=== PATIENT | male | born 1990 | race Asian ===

== ENCOUNTER 2022-10-24 22:22 | Emergency (ER) | payer OTHER, SELFPAY ==
[2022-10-24 22:25] VITALS: BP 124/62; PULSE 71; RESP 16; TEMP 36.8; O2SAT 96; BMI 26.9
--- NOTE | 2022-10-24 22:44 | ED_ITS ---
HPI - Back Pain/Injury General Chief Complaint: Back Pain/Injury Stated Complaint: back pain, injured at gym Time Seen by Provider: 10/24/22 22:26 Source: patient History of Present Illness HPI Narrative: 31-year-old male nonsmoker with noncontributory medical history presents with a chief complaint of low back pain. The patient was performing a lift at the gym this evening and felt a pop in his right lower back and now has pain. His pain is worse when he moves and improves with rest. He denies any radiation of the pain. Denies any lower extremity numbness, tingling or weakness. He has no fever or chills and denies the use of blood thinners. He denies any direct trauma to his lower back. He denies loss of control of bowel or bladder. Related Data Previous Rx's Medication Instructions Recorded cyclobenzaprine 10 mg tablet 10 mg PO TID PRN muscle spasm #14 10/24/22 tabs hydrocodone 5 mg-acetaminophen 325 1 tab PO Q4-6H PRN pain #10 tabs 10/24/22 mg tablet ketorolac 10 mg tablet 10 mg PO Q6H PRN pain #14 tabs 10/24/22 Allergies Allergy/AdvReac Type Severity Reaction Status Date / Time nickel Allergy Intermediate Rash Verified 10/24/22 22:25 Review of Systems Review of Systems Narrative: GENERAL: Denies chills, fatigue, malaise, fever, sweats. HEENT: Denies sinus pain, ear pain, sore throat, difficulty swallowing, dizziness. RESPIRATORY: Denies dyspnea, cough, wheezing, hemoptysis, sputum. CARDIOVASCULAR: Denies chest pain, palpitations, orthopnea, edema, GASTROINTESTINAL: Denies nausea, vomiting, abdominal pain, diarrhea, constipation, melena. : Denies dysuria, frequency, incontinence, hematuria, urinary retention. MUSCULOSKELETAL: See HPI SKIN: Denies rash, skin lesions, or other NEUROLOGIC: See HPI PSYCHIATRIC: No concerning psychosocial issues. 12 point review of systems is negative except for those stated above Patient History Social History Smoking Status: Never smoker Smoking Status: Never smoker alcohol intake frequency: holidays/special occasions only Substance Use Type: does not use Exam Narrative Exam Narrative: GENERAL: [31] year old patient appears stated age. Well-developed patient, in mild distress. HEAD: Atraumatic. Normocephalic. EYES: Pupils equal round and reactive. Extraocular motions intact. No scleral icterus. No injection or drainage. ENT: Nose without bleeding, purulent drainage. Throat without erythema, tonsillar hypertrophy or exudate. Airway patent. NECK: Trachea midline. Non tender CARDIOVASCULAR: Regular rate and rhythm without murmurs, gallops, or rubs. RESPIRATORY: Clear to auscultation. Breath sounds equal bilaterally. No wheezes, rales, or rhonchi. GASTROINTESTINAL: Abdomen soft, non-tender, nondistended. EXTREMITIES: No edema or joint tenderness. 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 Patient exam notes decreased range of motion and muscle spasm, but no CVA tenderness, or vertebral point tenderness. There are no symptoms of cauda equina such as saddle anesthesia, and decreased reflexes, decreased sensation or strength. NEURO: AOx3. SKIN: No rash or erythema of visible areas Initial Vital Signs Initial Vital Signs: Vital Signs Temperature 98.3 F 10/24/22 22:25 Pulse Rate 71 10/24/22 22:25 Respiratory Rate 16 10/24/22 22:25 Blood Pressure 124/62 10/24/22 22:25 Pulse Oximetry 96 10/24/22 22:25 Oxygen Delivery Method Room Air 10/24/22 22:25 Course Orders Ordered: Discontinued Medications Hydrocodone Bitart/Acetaminophen (Hydrocodone/Acet 5/325 Prepack) 1 bottle MISC SEEINSTR ONE Stop: 10/24/22 22:38 Last Admin: 10/24/22 22:45 Dose: 1 bottle Documented By: WAYNE Cyclobenzaprine HCl (Cyclobenzaprine 10 Mg Prepack) 1 bottle MISC SEEINSTR ONE Stop: 10/24/22 22:38 Last Admin: 10/24/22 22:45 Dose: 1 bottle Documented By: WAYNE Ketorolac Tromethamine (Ketorolac 30 Mg/Ml Vial) 30 mg IM NOW ONE Stop: 10/24/22 22:38 Last Admin: 10/24/22 22:45 Dose: 30 mg Documented By: WAYNE Vital Signs Vital signs: Vital Signs - 8 hr 10/24/22 22:25 10/24/22 22:58 Temperature 98.3 F Pulse Rate 71 69 Respiratory Rate 16 18 Blood Pressure 124/62 116/63 Pulse Oximetry 96 98 Oxygen Delivery Method Room Air Room Air MDM - Back Pain/Injury MDM Narrative Medical decision making narrative: [31] year old patient presents with right low back pain Multiple etiologies of back pain considered including; Epidural abscess, cauda equina, mass occupying lesion, and other considered No prior charts noted Primary Historian: patient Patient's symptoms improved over duration of stay with above-stated therapies. Patient has reassuring history and physical exam, no radicular signs, no signs of cauda equina, no fever or use of blood thinners Findings and discharge diagnosis discussed with patient/family followed by verbalization of understanding Return precautions discussed with patient/family whom verbalize understanding of diagnosis and plan Discharge Plan Departure Patient Disposition: Home Clinical Impression: Low back pain Instructions: DI for Back Spasm Activity Restrictions/Additional Instructions: *You have been diagnosed with [low back pain with spasm. As we discussed your history and physical exam are reassuring and there is no evidence of a neurosurgical emergency, spinal cord involvement or other type of injury that would require immediate intervention] *What to do: *Please continue to take your regular medications as directed. [x ] New medication prescriptions sent to your pharmacy: [ [facility] in [place]] [ ] New medication written as a paper prescription [ ] No new medications given *Please follow up with your primary care provider in 2-3 days, call for an appointment. Let them know you were seen in the Emergency Department and that we ask that you be seen in follow up. We will electronically transmit a record of today's note if your PCP is in our system *If you do not have a primary care provider please contact the [facility] Resource line at [phone]. They will ask some questions about your medical history and help get you set up with a doctor in the community. *Return to Emergency Department if you should have any new, worsening or concerning symptoms, such as [fever greater than 101 F, shaking chills, worsening pain, persistent vomiting or other bothersome symptoms] You have been prescribed a short course of narcotic medications. These are potentially dangerous and addictive medications that should be used carefully. While on these medications you cannot drive or operate heavy machinery. Additionally, you cannot sign legal documents or perform any duties such as this. Many people get constipated on narcotic medications so it would be advisable to discuss stool softeners with the pharmacist when you rock picker your prescription. Please understand that we cannot provide further refills of narcotics or controlled substances through the ED and your pain management will need to be through your Primary Care Provider Prescriptions: New cyclobenzaprine 10 mg tablet 10 mg PO TID PRN (Reason: muscle spasm) Qty: 14 0RF hydrocodone-acetaminophen 5-325 mg tablet 1 tab PO Q4-6H PRN (Reason: pain) Qty: 10 0RF ketorolac 10 mg tablet 10 mg PO Q6H PRN (Reason: pain) Qty: 14 0RF Referrals: ProviderAdela [Primary Care Provider] - Stand Alone Forms: Patient Portal/API, Work Release Note
[2022-10-24] MEDS: KETOROLAC 30 MG/ML VIAL IM (22:45)
[2022-10-24] MEDS: HYDROCODONE/ACET 5/325 PREPACK 1 BOTTLE MISC (22:45)
[2022-10-24] MEDS: CYCLOBENZAPRINE 10 MG PREPACK 1 BOTTLE MISC (22:45)
[2022-10-24 22:58] VITALS: BP 116/63; PULSE 69; RESP 18; O2SAT 98
== END 2022-10-24 22:58 | disposition home or self-care (01) ==
LOC: ED 23:05
PROVIDERS: Emergency Provider Emergency Medicine
DX: M54.50 Low back pain, unspecified (principal)
CPT/HCPCS: 96372; 99283; J1885

== ENCOUNTER 2024-04-07 09:54 | Inpatient (IN) | payer OTHER, SELFPAY ==
[2024-04-03 09:42] VITALS: BMI 27.9
[2024-04-07] VITALS (18 sets, daily range): BP systolic 107–134; BP diastolic 43–84; PULSE 60–94; RESP 12–22; TEMP 36.1–37; O2SAT 94–100; BMI 28.3
--- NOTE | 2024-04-07 12:12 | PM.PREOP ---
Pre-operative Note Interval Note History & Physical reviewed/Exam performed by Physician: Yes Changes to H&P: No
[2024-04-07] MEDS: CEFAZOLIN 2 GM/100 ML PREMIX 100 ML IV ×2 (12:40→20:34)
--- NOTE | 2024-04-07 12:55 | SUR.OPER ---
Prone on spine table, head in foam head support, padded chest and pelvic supports, gel pad at knees, lower legs supported by pillows; nipples, genitalia and toes free of pressure, arms secured on foam padded arm boards at <90 degrees abduction. Tape over blanket at thigh secured to table.
--- NOTE | 2024-04-07 14:41 | DI.RAD.S_ITS ---
PROCEDURE: XR LUMBAR SPINE 2-3V INDICATIONS: L5-S1 TLIF TECHNIQUE: Low resolution intraoperative fluoroscopic spot films were obtained COMPARISON: None. FINDINGS: Intraoperative fluoroscopic spot films show L5-S1 TLIF in progress IMPRESSION: Fluoroscopic guidance Approved by: [place] Mike M.D. on 04/07/2024 at 17:40
--- NOTE | 2024-04-07 14:49 | P.OP_ITS ---
Operative Date/Time/Diagnoses Date of procedure: 04/07/24 Time of procedure: 12:00 Pre-op diagnosis: 1. L5 bilateral pars defect 1. L5-S1 anterolisthesis Post-op diagnosis: same Procedure & Clinicians Procedure: 1. L5-S1 Postero-lateral and posterior interbody fusion 2. L5-S1 interbody cage placement. 3. L5-S1 decompressive laminectomy with bilateral facetecomies 4. L5-S1 Posterior non-segmental instrumentation 5. [place] of bone marrow from iliac crest 6. Utilization of microsurgical technique and operating microscope Same procedure as scheduled: Yes Indications: Patient has been having chronic back pain and worsening lumbar radiculopathy. Patient failed multiple conservative management with worsening pain weakness and numbness in her lower extremity. Patient has been having difficulty performing activity of daily living. After discussing risks benefits of treatment options, patient elected proceed with surgery. Surgeon: Carlitos Zuñiga Family Service Worker: Radha Park Click Yes if Unassisted: No Anesthesia Type: General Operative Notes Closure Type: primary Specimen(s): none sent Prosthetic devices, grafts, tissues, transplants, or devices: Globus revolve screws, Rise cage Estimated Blood Loss (mL): 50 Blood products transfused: none Procedure in detail: Patient was seen in the preoperative area. Risks and benefits of the surgery was discussed with the patient. Informed consent was obtained from the patient and placed in the chart. Surgical site was marked. Patient was taken to the operative room. General anesthesia was administered. Prophylactic antibiotic was given to the patient less than 30 min before the incision was made. Patient was placed into a prone position on the Sung table. Patient's back was then prepped and draped in the sterile fashion. Time-out was performed at this time. Using AP and lateral C-arm imaging the interval between L5-S1 was identified and marked on patient's back. A 2 inch incision 2 in from midline was made on the left side first. The fascia was incised in line with skin incision. Globus MARS retractors was placed inside the incision and docked onto the L5 lamina. Using microsurgical technique and operating microscope, a L5 laminectomy and L5-S1 facetectomy was performed using a Kerrison rongeur. Patient was found have lateral recess and neural foramen stenosis on the left which was fully decompressed after the laminectomy facetectomy. The laminectomy and facetectomy was performed in order to decompress patient's cauda equina as well as the nerve roots exiting at the L5-S1 level. More than 75% of the facets were removed during the process of decompression rendering L5-S1 level grossly unstable and required a fusion procedure at the same time. The disc space at L5-S1 was identified. And a total diskectomy was performed at L5-S1 level. The endplates were decorticated using a rasp and shaver. The total diskectomy and decortication was performed at L5-S1 level in order to to accomplish a L5-S1 fusion. The local bone from the laminectomy and facetectomy was saved for local bone grafting. After the total diskectomy and decortication was completed, Viacel bone graft material was combined with local bone that was harvested earlier. At this time, a separate skin is incision was made over the iliac crest on the right. A Jamshidi needle was inserted into the iliac crest through a separate skin incision. 5 cc of bone marrow aspiration was obtained through the separate skin incision using a Jamshidi needle from the iliac crest. The bone marrow aspiration was combined with local bone and the Viacel bone grafting material. The bone grafting material was placed into the L5-S1 interbody space along with a expandable cage. The cage was expanded to its maximum height using the torque limiting screwdriver. At this time a mirror image incision was made on the right side. The fascia was incised in line with the skin incision. Globus MARS retractor was inserted and docked onto the L5-S1 posterolateral gutter. Using the power drill, posterior- lateral decortication was performed at L5-S1 level until bleeding cortical bone was identified. The remaining bone grafting material was placed into the L5-S1 posterior lateral gutter he order to accomplish posterolateral fusion at the L5- S1 level. Using the double C-arm technique, pedicle screws were placed into the L5-S1 pedicles bilaterally. This was done by placing the Jamshidi needle into the pedicles, then placing the guidewires over the Jamshidi needle, and finally placing the cannulated screws over the guidewires bilaterally. After the pedicle screws were placed, 2 titanium rods was locked into the heads of the pedicle screws using locking caps and torque limiting screwdriver. After all the hardware was placed, and confirmed with AP and lateral C-arm imaging, the wound was then irrigated with sterile normal saline and packed with Ray-Jose De Jesus gauze for 3 min to accomplish hemostasis. After the gauze was removed the deep fascia was closed with #1 Vicryl suture. The subcutaneous layer was closed with 2-0 Vicryl. The skin was closed with skin faustino. Patient tolerated the procedure well. There were no complications. The Operation could not have been safely performed without compromising the technical result or length of the procedure, without the assistance of a skilled executive marketing assistant. The executive marketing assistant was medically necessary for proper positioning, retraction and manipulation of instruments, proper exposure, surgical preparation, and manipulation of tissue. Neuro monitoring was utilized throughout the entire case. The signals were stable throughout entire procedure. Complications: none Post-operative Condition: stable Disposition: PACU Plan for aftercare: Admit to inpatient hospital
[2024-04-07] MEDS: BUPIVACAINE 0.25% (PF) 60 ML, EPINEPHrine 0.15 MG INJ (14:50)
[2024-04-07] MEDS: BUPIVACAINE LIPOSOME 266 MG/20 ML VIAL INJ (14:50)
[2024-04-07] MEDS: HYDROMORPHONE 1 MG INJ IV ×2 (15:24→15:30)
[2024-04-07] MEDS: ONDANSETRON 4 MG/2 ML INJ IV (15:27)
[2024-04-07] MEDS: hydrOXYzine 50 MG/ML INJ 25 MG IM (15:45)
[2024-04-07] MEDS: fentaNYL 100 MCG/2 ML INJ IV ×2 (15:49→15:55)
[2024-04-07] MEDS: OXYCODONE/ACETAMINOPHEN 5/325 TABLET 1 TAB PO (15:59)
--- NOTE | 2024-04-07 16:24 | SUR.PHASEI ---
Pt transferred to room 212 by Patricia RODRIGUEZ with 2 white belongings bags.
[2024-04-07] MEDS: LACTATED RINGERS 1,000 ML 125 ML IV ×2 (16:48→21:45)
[2024-04-07] MEDS: ACETAMINOPHEN 325 MG TABLET 650 MG PO (19:02)
[2024-04-07] MEDS: OXYCODONE IR 5 MG TABLET PO ×2 (19:02→22:29)
[2024-04-07] MEDS: SENNOSIDES 8.6 MG TABLET 17.2 MG PO (20:34)
[2024-04-07] MEDS: DOCUSATE 100 MG CAPSULE PO (20:34)
[2024-04-08] MEDS: OXYCODONE IR 5 MG TABLET PO (02:19)
[2024-04-08] MEDS: OXYCODONE IR 10 MG TABLET PO ×6 (03:26→20:45)
[2024-04-08] MEDS: ACETAMINOPHEN 325 MG TABLET 650 MG PO ×3 (05:24→20:45)
[2024-04-08] MEDS: CEFAZOLIN 2 GM/100 ML PREMIX 100 ML IV (05:25)
--- NOTE | 2024-04-08 07:42 | P.DS_ITS ---
History of Present Illness History of Present Illness Date Patient Seen: 04/08/24 Time Patient Seen: 07:42 Chief complaint: Back pain Narrative: Back pain is [id number] denies fever chills. Able to urinate on his own. He does have assistance at home. Discharge Providers Provider Date of admission: 04/07/24 09:54 Discharge Date: 04/08/24 Primary care physician: Adela GORE Provider Consults: 04/07/24 16:24 Consult to Occupational Therapy Evaluate & Treat Comment: Physician Instructions: Evaluate and treat Consult to Physical Therapy Evaluate & Treat Comment: Physician Instructions: Evaluate and Treat Discharge provider: Pop Mckeon PA-C Summary Hospital Course Discharge Diagnosis: 1. L5 bilateral pars defect 1. L5-S1 anterolisthesis Hospital Course: 1. L5-S1 Postero-lateral and posterior interbody fusion 2. L5-S1 interbody cage placement. 3. L5-S1 decompressive laminectomy with bilateral facetecomies 4. L5-S1 Posterior non-segmental instrumentation 5. [place] of bone marrow from iliac crest 6. Utilization of microsurgical technique and operating microscope Same procedure as scheduled: Yes Indications: Patient has been having chronic back pain and worsening lumbar radiculopathy. Patient failed multiple conservative management with worsening pain weakness and numbness in her lower extremity. Patient has been having difficulty performing activity of daily living. After discussing risks benefits of treatment options, patient elected proceed with surgery. Surgeon: Carlitos Zuñiga Habitat Management Coordinator: Radha Park Click Yes if Unassisted: No Anesthesia Type: General Operative Notes Closure Type: primary Specimen(s): none sent Prosthetic devices, grafts, tissues, transplants, or devices: Globus revolve screws, Rise cage Estimated Blood Loss (mL): 50 Blood products transfused: none Patient admitted to the hospital for the above-mentioned procedure. Patient consented to the same. Patient underwent L5-S1 fusion April 07, 2024. Patient back in his room recovering well as in stable condition. Patient will mobilize with physical therapy. Limit bending, twisting, lifting. Multimodal pain management. Discharge home today after physical therapy if safe for home environment. Exam Vital Signs (past 8 hours): Oxygen Delivery Method Room Air Oxygen Flow Rate 0 Narrative Exam Narrative: 33-year-old male resting comfortably in bed in no apparent distress. Neurovascular status is intact bilateral lower extremities. Const General: cooperative and comfortable PFSH Surgical History Hx of LASIK Social History household members: spouse Smoking Status: Never smoker alcohol intake: current Discharge Assessment & Plan Assessment and Plan Assessment: Patient progressing as expected Plan of Treatment: Multimodal pain management Limit bending, twisting, lifting Discharge home today after physical therapy if safe for home environment Discharge Plan Discharge orders & Medications Discharge Orders: Discharge (Order); Ordered 04/08/24 Ordered By: Pop Mckeon Prescriptions: New polyethylene glycol 3350 17 gram Powder In Packet 17 gm PO DAILY PRN (Reason: Constipation) Qty: 10 0RF oxycodone 5 mg Tablet 5 mg PO Q3H PRN (Reason: Pain, Moderate (4-6)) Qty: 30 0RF Continued acetaminophen [Tylenol Extra Strength] 500 mg Tablet 1,000 mg PO Q8H Discontinued naproxen [Naprosyn] 500 mg Tablet 500 mg PO BID Follow up/Referrals: Carlitos Zuñiga MD [Physician] - 04/22/24 9:50 am ([employer] in [place]) Provider,Adela GORE [Primary Care Provider] - Diet/Activity/Treatments Diet: Diet as Tolerated Activity: No deep bending or twisting at the waist. No lifting more than 10 pounds. Skin/Wound/Dressing Care Report to your healthcare provider any signs of infection, such as:: chills, fever, night sweats, unusual drainage and unusual redness Dressing: May shower. Keep dressing as dry as possible. If dressing becomes wet or dirty, may remove and replace with clean, dry gauze. No bathing or otherwise soaking incisions. Do not apply any creams, lotions, or ointments to incisions. Visit Report/Discharge Packet Instructions: DI for Constipation, How to Prevent Falls, DI for Prescription Opioid Use, DI for Transforaminal Lumbar Interbody Fusion Stand Alone Forms: Patient Portal/API, Stroke Signs & Symptoms, Surgery Discharge Discharge Data Primary Care Provider: ProviderAdela Quality VTE Deep Vein Thrombosis/Pulmonary Embolism Present on Admission: No
[2024-04-08] MEDS: DOCUSATE 100 MG CAPSULE PO ×2 (08:18→20:46)
--- NOTE | 2024-04-08 09:36 | OT.IP.EVAL ---
Current Diagnoses Spondylolisthesis, lumbar region (04/07/24) Spinal stenosis, lumbar region without neurogenic claudication (04/07/24) Surgery Performed Operation Date: 04/07/24 11:45 Actual Procedures p L5-S1 TLIF - Carlitos Zuñiga MD Surgical History (Last Reviewed 04/08/24 @ 07:44 by Pop Mckeon PA-C) [facility] Occupational Therapy Inpatient Evaluation/Re-Eval M1 PT/OT-IP Prior Functional Status Start: 04/08/24 10:37 Freq: NEEDED Status: Active Protocol: Document 04/08/24 10:38 [facility] (Rec: 04/08/24 10:49 [facility] [id number]) Medical Review Prior Functional Status Communication Independent Mobility and Gait Independent but had pain. Activities of Daily Living and IADL's Independent but had pain. Social History Household Members spouse Living Arrangements House Number of Floors (Floors) Two Floors Number of Stairs To Enter/Railing? 2 stair to enter without railing. Main floor bedroom. Home Environment Standard Height Toilet,Tub/ Shower Home Equipment Front Wheel Walker,Hand Held Shower Additional Social History Comment Pt is to be able to assist him. M2 OT-IP Current Condition Start: 04/08/24 10:37 Freq: Status: Active Protocol: Document 04/08/24 10:38 [facility] (Rec: 04/08/24 10:49 [facility] [id number]) Occupational Therapy Current Condition Current Condition Evaluation Date 04/08/24 Treatment Diagnosis S/P L5-S1 TLIF Diagnosis Onset Date 04/07/24 Post Operative Precautions Lumbar Precautions Log Roll,No Twisting,Limit Bending,Lifting Restriction of 10 lbs,Gait Belt above Incisional Area M3 OT- IP Subjective and Pain Start: 04/08/24 10:37 Freq: Status: Active Protocol: Document 04/08/24 10:38 [facility] (Rec: 04/08/24 10:49 [facility] [id number]) OT- Subjective Occupational Therapy Visit Type Type Initial Evaluation Visit Start Time 09:00 Visit Stop Time 09:36 Occupational Therapy Visit Comments Patient Comments Pt agreed to get up. Patient/Caregiver Goals TO go home. OT Pain Assessment Pain When Pain Assessed At Rest Pain Present Pain Present Pain Reported Location Lower Back Intensity 5 Scale Used Numeric (0 - 10) M4 OT- IP ADL's Start: 04/08/24 10:37 Freq: Status: Active Protocol: Document 04/08/24 10:38 [facility] (Rec: 04/08/24 10:49 [facility] [id number]) OT GLC-Hvea-Bkevfwy General Evaluation Self-Feeding Ability Independent OT ADL-Grooming Comments OT Grooming Comments Not performed. OT ADL-Oral Care Comments Oral Care Comments Suggested to hinge at his hips or spit into a cup to best follow his back precautions. OT ADL-Dressing General Eval Lower Body Dressing Ability Maximum Assistance Areas Needing Assistance Socks Comments OT Dressing Comments Able to practice use of LB dressing equipment, pt states to just wear slip on shoes. OT ADL-Toileting Comments OT Toileting Comments Pt needing heavy use of grab bar and MODA to stand. Pt will benefit from BSC. OT ADL-Bathing Comments OT Bathing Comments Pt will benefit from a tub bench versus shower chair. M5 OT- IP IADL's Start: 04/08/24 10:37 Freq: Status: Active Protocol: Document 04/08/24 10:38 [facility] (Rec: 04/08/24 10:49 [facility] [id number]) OT-Instrumental Activities of Daily Living Home Safety Awareness Awareness of Need for Assistance at Home Good Awareness Home Safety Comments Pt a little groggy at this time. Pt has a very supportive to be able to assist with all his needs. Meal Preparation Meal Preparation Caregiver Provides Assist Road Cutter Road Cutter Caregiver Provides Assist M6 OT- IP Functional Cognition Start: 04/08/24 10:37 Freq: Status: Active Protocol: Document 04/08/24 10:38 [facility] (Rec: 04/08/24 10:49 [facility] [id number]) Cognitive Factors Limiting Selfcare Function Cognitive Ability Level of Alertness Alert Patient Orientation Name,Age,Birthday,Month,Date, Year,Day of Week,Place, Situation Attention Span Ability Capable of Focused Attention, Capable of Sustained Attention Ability to Follow Commands Able to Follow One Step Commands Safety Awareness Decreased Recall of Precautions,Decreased Ability to Apply Precautions Cognitive Comments Cognitive Assessment Comments Pt needing reminders to incorporate his back precautions, especially for log rolling needs. OT- Vision and Hearing OT- Hearing Assessment OT- Hearing Assessment WFL OT- Vision Assessment Visual Acuity WFL Visual Attentiveness WFL Occular Pursuits WFL M7 OT- IP Mobility and Balance Start: 04/08/24 10:37 Freq: Status: Active Protocol: Document 04/08/24 10:38 [facility] (Rec: 04/08/24 10:49 [facility] [id number]) OT- Bed Mobility Assessment Rolling Level of Assistance Minimal Assistance Supine to Sit Supine to Sit Assist Moderate Assistance Sit to Supine Sit to Supine Assist Moderate Assistance OT-Transfer Assessment Sit to and From Stand Sit to and from Stand Minimal Assistance,Moderate Assistance Transfers Transfer Ability Minimal Assistance Technique Transfer Destination Bed,Chair,Toilet Transfer Technique Stand Step Pivot Devices Transfer Assistive Devices Gait Belt,Front Wheeled Walker Comments Mobility Comments Pt needing MODA to stand from lower surfaces. Pt tend to grab the FWW to come to stand and at this time will benefit from higher surfaces with armrests to stand. Pt's able to assist pt with the FWW and to come to stand from the bed. Pt is very heavy handed on the FWW while walking with the FWW. OT- Balance Assessment Sitting Balance and Reactions Static Sitting Balance Ability Good Dynamic Sitting Balance Ability Fair Standing Balance and Reactions Static Standing Balance Ability Fair Dynamic Standing Balance Ability Fair M8 OT- IP Objective Assessments Start: 04/08/24 10:37 Freq: Status: Active Protocol: Document 04/08/24 10:38 [facility] (Rec: 04/08/24 10:49 [facility] [id number]) OT Gross Range of Motion Upper Extremity Range of Motion ROM Impairments WFL for needs OT Strength Comments Strength Comments WFL for needs. M9 OT- IP Assessment and Plan Start: 04/08/24 10:37 Freq: Status: Active Protocol: Document 04/08/24 10:38 [facility] (Rec: 04/08/24 10:49 [facility] [id number]) OT Summary Assessment and Plan Potential Rehabilitation Potential Good Analytic Complexity at Evaluation Low Summary OT Impairments Pain,Balance,Functional Mobility,Grooming,Dressing, Toileting,Bathing,Toilet Transfers,Shower Transfers, Activity Tolerance Progress Towards Goals Slow Progress due to Pain Assessment Summary Pt low complexity and main barriers are pain and decreased activity tolerance. Pt at this time needing MODA to stand from lower surfaces. Pt to go home when medically stable and to assist. Goals Self-Feeding Goal Independent Grooming Goal Independent Dressing Goal Minimal Assistance Toileting Goal Standby Assistance Bathing Goal Minimal Assistance Toilet Transfer Goal Independent Shower Transfer Goal Standby Assistance Days to Meet Goals 10 Frequency of Treatment Other frequency 5x/week Treatment Plan OT Treatment Plan ADL Training,Functional Mobility,Patient/Family Education,Discharge Planning Discharge Recommendations OT Discharge Recommendations Home with 18/12 Assist Available Home Equipment Needs tub bench versus shower chair, LB dressing equipment Transportation Needs at Discharge Private Vehicle
--- NOTE | 2024-04-08 09:40 | PT.IIE ---
Current Diagnoses Spondylolisthesis, lumbar region (04/07/24) Spinal stenosis, lumbar region without neurogenic claudication (04/07/24) Surgery Performed Operation Date: 04/07/24 11:45 Actual Procedures p L5-S1 TLIF - Carlitos Zuñiga MD Surgical History (Last Reviewed 04/08/24 @ 07:44 by Pop Mckeon PA-C) [facility] Physical Therapy Inpatient Evaluation/Re-Eval M1 PT/OT-IP Prior Functional Status Start: 04/08/24 13:07 Freq: NEEDED Status: Active Protocol: Document 04/08/24 09:40 [facility] (Rec: 04/08/24 13:25 [facility] [id number]) Medical Review Prior Functional Status Medical History Reviewed Yes Communication able to make needs known Mobility and Gait pt stated that he was independent with all mobilities and ambulation without AD Activities of Daily Living and IADL's per OT note: Independent but had pain. Social History Household Members spouse,family,children Living Arrangements House Number of Floors (Floors) Two Floors Number of Stairs To Enter/Railing? pt stays on main level of the house 1 step to enter the house Home Environment Standard Height Toilet,Tub/ Shower Home Equipment Front Wheel Walker,Hand Held Shower Employment Status Prize [employer] Employed Additional Social History Comment pt lives with his spouse, children and [id number] pt works for logistics in the [employer] M2 PT-IP Current Condition Start: 04/08/24 13:07 Freq: NEEDED Status: Active Protocol: Document 04/08/24 09:40 [facility] (Rec: 04/08/24 13:25 AB [id number]) Physical Therapy Current Condition Current Condition Evaluation Date 04/08/24 Treatment Diagnosis s/p L5-S1 TLIF ; difficulty in walking Onset Date 04/07/24 M3 PT-IP Subjective Start: 04/08/24 13:07 Freq: NEEDED Status: Active Protocol: Document 04/08/24 09:40 [facility] (Rec: 04/08/24 13:25 AB [id number]) Subjective Physical Therapy Visit Type Type Initial Evaluation Visit Start Time 09:40 Visit Stop Time 10:20 Number of AUTO ELECTRICIAN Visits 0 Physical Therapy Visit Comments Patient Comments agreed to do PT Therapy Pain Assessment Pain When Pain Assessed At Rest Pain Present Pain Present Pain Reported Location Lower Back Intensity 7 Scale Used Numeric (0 - 10) Pain Behaviors Facial Grimacing,Guarding, Wincing Pain Management Techniques Apply Cold,Distraction, Modification of Treatment,Re- positioning,Timing of Activity with Medications M4 PT-IP Mobility and Gait Start: 04/08/24 13:07 Freq: NEEDED Status: Active Protocol: Document 04/08/24 09:40 [facility] (Rec: 04/08/24 13:25 AB [id number]) PT-Bed Mobility Assessment Rolling Type of Rolling Log Rolling Level of Assist Moderate Assistance Supine to Sit Supine to Sit Moderate Assistance PT-Transfer Assessment Sit to and From Stand Sit to and from Stand Maximum Assistance,1 Person Assistance,Use of Upper Extremities Equipment Transfer Assistive Device Gait Belt,Front Wheeled Walker Orthotic/Prosthetic Devices or Brace: No Transfers Transfer Destination Chair Transfer Technique ambulated Transfer Ability Level of Assist Maximum Assistance,1 Person Assistance,Use of Upper Extremities Comments Mobility Comments pt supine in bed and agreeable to do PT. spouse in room with pt. obtained PLOF and home set up. reviewed back precautions and log roll bed mobility. BP: 108/58 pt completed supine to sit log roll mod A and max cues. c/o increase back pain. able to sit on EOB CGA and cues for positioning. increase guarding and c/o pain. completed sit to stand x 3 attempts max A and max cues. pt ambulated in room using FWW max A and cues ~ 10 ft. presents with unsteady shuffling gait with wide based gait. pt with slight buckling on B knees but with no LOB. cued for quads activation. pt sat on chair and agreed to sit up on the chair. positioned pt on the chair. call light and table placed within reach. informed pt and spouse regarding pt's current level of assistance. pt stated that he is not ready to go home. informed spouse regarding possible caregiver training this afternoon if appropriate and spouse agreed. informed nurse regarding pt's mobility assistance level. Gait Assessment Gait Gait Assistance Required: Maximum Assistance Distance (Feet) 10 Able to Maintain Weight Bearing Status Yes During Gait Assistive Devices Assistive Device Gait Belt,Front Wheeled Walker Orthotic/Prosthetic Devices or Brace: No Gait Deviations General Gait Pattern Decreased Stride Length, Decreased Feet Clearance,Step- to Gait,Wide Based Gait Factors Limiting Gait Function Factors Limiting Gait Function Decreased Activity Tolerance, Decreased Strength,Limited Range of Motion,Pain,Poor Balance,Poor Safety Awareness PT-Balance Assessment Sitting Balance and Reactions Static Sitting Balance Ability Good Dynamic Sitting Balance Ability Fair Standing Balance and Reactions Static Standing Balance Ability Fair Dynamic Standing Balance Ability Poor M5 PT-IP Objective Assessments Start: 04/08/24 13:07 Freq: NEEDED Status: Active Protocol: Document 04/08/24 09:40 [facility] (Rec: 04/08/24 13:25 AB [id number]) Orientation Orientation/Cognition Level of Alertness Alert Orientation Name,Age,Birthday,Place, Situation Language Function Ability No Deficits Noted Safety Awareness Decreased Safety Awareness Memory Description No Deficits Noted Gross Range of Motion Lower Extremity ROM Assessment Within Functional Limits Strength Lower Extremity Strength Assessment Bilaterally Impaired Hip 3+/5 Knee 4-/5 Ankle 4/5 Coordination Assessment Gross Coordination Gross Coordination WNL Sensation Assessment Sensation Gross Sensation WNL Muscle Tone Muscle Tone WNL Yes M6 PT-IP Treatment Start: 04/08/24 13:07 Freq: NEEDED Status: Active Protocol: Document 04/08/24 09:40 AB (Rec: 04/08/24 13:25 AB [id number]) Physical Therapy Treatment Education Education Provided Precautions,Weight Bearing Status,Safety M7 PT-IP Assessment and Plan Start: 04/08/24 13:07 Freq: NEEDED Status: Active Protocol: Document 04/08/24 09:40 AB (Rec: 04/08/24 13:25 AB [id number]) PT Summary Assessment and Plan Potential Rehabilitation Potential Fair Status of Condition at Evaluation Evolving Summary Impairments Pain,ROM,Strength,Balance, Coordination,Sensation,Tone, Cognition,Bed Mobility, Transfers,Gait,Activity Tolerance Assessment Summary pt is a 33 y/o M s/p L5S1 TLIF POD 1. pt requiring max A for sit to stand and presents with unsteadiness during ambulation with slight buckling on BLE needed max A and max cues. pt will have his spouse to assist him. will conduct caregiver training when appropriate. will also completed stair climbing training. will continue to assess progress. Goals Bed Mobility Goal Standby Assistance Transfer Goal Standby Assistance,Front Wheeled Walker Gait Goal Standby Assistance,Front Wheel Walker Gait Distance 100 Other Goals improve bed mobility, transfers, ambulation using FWW 200 ft mod I up/down 1 step using FWW mod I Days to Meet Goals 5 Frequency of Treatment Frequency Of Treatment Twice a Day Treatment Plan Physical Therapy Treatment Plan Bed Mobility Training,Transfer Training,Gait Training, Therapeutic Exercise,Balance Retraining,Post Op Education, Discharge Planning,Hot or Cold Pack,Neuromuscular Re-ed, Coordination Retraining,Manual Therapy Precautions Lumbar Precautions Log Roll,No Twisting,Limit Bending,Lifting Restriction of 10 lbs,Gait Belt above Incisional Area Recommendations To Nursing Amount of Assist Needed 2 Person Assist Discharge Recommendations PT Discharge Recommendations Home with 18/12 Assist Available,Home Health Transportation Needs at Discharge Private Vehicle,Wheelchair/ Cabulance
[2024-04-08 11:45] VITALS: BP 102/44; PULSE 71; RESP 17; TEMP 36.8; O2SAT 99
[2024-04-08] MEDS: CYCLOBENZAPRINE 10 MG TABLET PO (11:51)
--- NOTE | 2024-04-08 11:57 | CM.DANOTE ---
Initial DCP Assessment Visit Note Reviewed EMR and team rounds for status updates. Met with pt and spouse at bedside to introduce self and role, pt was found to be alert/oriented, and sitting upright in the recliner. He lives mostly independently with his in their own home in [place], pt is active duty [employer]. His spouse will transport him home once he's medically cleared for d/c, either later this afternoon or tomorrow-pending, due to unresolved pain issues. Payor: Sara Zuniga Attending: Dr. Zuñiga Pt is a 33 year-old M post-op day 1 from a lumbar spine surgery. Pt fell off of a ladder while working on his [employer] in 2016. He's had constant and worsening lower back pain, numbness, weakness, and radiculopathy that runs down his R-leg. Conservative efforts such as NSAIDS and exercise modification have had no lasting benefit. Pt states that he has all necessary DME at home for postoperative recovery needs, and has a plan for OP PT once he's cleared by Dr. Zuñiga at his Ortho f/u visit. Pt denies any CM assistance or resource needs for d/c at this time. Will continue to monitor for any further evolving needs. Discharge Planning/Care Management CM Discharge Assessment Start: 04/08/24 11:44 Freq: Status: Active Protocol: Document 04/08/24 11:45 DPL (Rec: 04/08/24 11:46 DPL [id number]) Discharge Planning Assessment Assigned Machine Repair Person ZORAIDA Goetz Advance Directives? No History Provided By Patient,Medical Record Has Patient been admitted in last 30 No days? Prior Living Arrangements House Household Members spouse Type of transporation used prior to Drives own vehicle admit Independent with ADL's No: modified independent w/ walker at times Is patient alert and oriented? Yes Caregiver for Another No DME Already Rented / Owned FWW / Walker Patient/Family Preference OP PT Therapy Barriers to Discharge No Discharge Plan Home Community Services Physical Therapy Transportation Arrangement Spouse Whiteboard Updated in Patient Room with Yes name and ext. # of Machine Repair Person Review Status In Process Please Provide Date Initial DC 04/08/24 Assessment Was Performed Pre-Anesthesia Assessment Start: 04/03/24 09:42 Freq: Status: Complete Protocol: Document 04/03/24 09:42 LB (Rec: 04/03/24 10:16 LB [id number]) Pre-Anesthesia Assessment PAC Comment 04/03/24 Phone assessment. Patient Information Reviewed Via Phone Assessment Assessment Completed With Patient Diagnostic Results BMP/CMP,CBC Comment 02/07/24 Primary Care Provider Radha Causey Seen Specialist in Last 12 Months Yes Specialist Seen Orthopedist Primary Language American Preferred Language American Marketing Officer Required No Height 167.64 cm Weight 78.471 kg Body Mass Index (BMI) 27.9 Hearing Ability Normal Visual Assist Glasses Dentition Type Teeth, Natural Present Other Aids No Hx Anesthesia Reactions Never had general anesthesia. Hx Family Anesthesia Reaction No Hx Malignant Hyperthermia No Hx Blood Transfusions No Anesthesia Review Requested No Language Therapist No alcohol intake current alcohol intake frequency holidays/special occasions only Smoking Status Never smoker Substance Use Type does not use Pain Present Pain Reported Comment Back, right leg Musculoskeletal Symptoms Back Pain,Radiating Pain into Limb History of Falling (Recent or History of Yes ) Comment Fell off ladder. Patient is completely paralyzed or No completely immobile Mental Status Oriented to own ability Comment Will bring walker. Is patient on oxygen? No Hx Sleep Apnea No Currently Taking a Beta Shane No Can You Climb a Flight of Stairs Without Yes SOB Hx Chest Pain No Hx SOB No Hx Syncope or Dizziness No Anti-Coagulant Therapy No Cardiac Testing No Hx Pacemaker/ICD No Cardiac Clearance Received Not Applicable Dysphagia No Urinary Catheter Present No Hx Urinary Self Catheterization No Diabetes No Hx Drug Resistant Organism No Presence of External or Internal Medical No Devices Have you had any close contact with No someone diagnosed with COVID-19? Are you experiencing any of these No symptoms symptoms? Received a COVID vaccine? Yes Comment Denies covid last 2 months. Marital Status Lives With spouse Current Living Arrangements House Number of Stairs To Enter/Railing? 1 stair to enter without railing. Main floor bedroom. Support System Spouse Does the Patient Have Assistance After Yes Surgery Patient Discharge Plan Description Return Home Additional comment Advised 1 night LOS. Feels Safe in Current Environment Yes Do you have a plan to hurt yourself or No Plan others? Emergency Contact Name Janet De La Rosa - Emergency Contact Advance Directives? No PAC Instructions Assistance for 24 hours post- op,Nasal antibiotic,No ETOH/ petroleum product on skin DOS
--- NOTE | 2024-04-08 13:43 | PT.IPTN ---
Current Diagnoses Spondylolisthesis, lumbar region (04/07/24) Spinal stenosis, lumbar region without neurogenic claudication (04/07/24) Surgery Performed Operation Date: 04/07/24 11:45 Actual Procedures p L5-S1 TLIF - Carlitos Zuñiga MD Physical Therapy Treatment Note M2 PT-IP Current Condition Start: 04/08/24 13:07 Freq: NEEDED Status: Active Protocol: Document 04/08/24 09:40 AB (Rec: 04/08/24 13:25 AB [id number]) Physical Therapy Current Condition Current Condition Evaluation Date 04/08/24 Treatment Diagnosis s/p L5-S1 TLIF ; difficulty in walking Onset Date 04/07/24 M3 PT-IP Subjective Start: 04/08/24 13:07 Freq: NEEDED Status: Active Protocol: Document 04/08/24 16:38 TS (Rec: 04/08/24 16:50 TS [id number]) Subjective Physical Therapy Visit Type Type Treatment Note Visit Start Time 13:43 Visit Stop Time 14:10 Notes Spouse present Number of MAILROOM CLERK Visits 1 Physical Therapy Visit Comments Patient Comments Pt found resting in the chair, he is agreeable to PT. Therapy Pain Assessment Pain When Pain Assessed During Mobility Pain Present Pain Present Pain Reported Location Lower Back Intensity 7 Scale Used Numeric (0 - 10) Pain Behaviors Facial Grimacing,Guarding, Wincing Pain Management Techniques Apply Cold,Distraction, Modification of Treatment,Re- positioning,Timing of Activity with Medications M4 PT-IP Mobility and Gait Start: 04/08/24 13:07 Freq: NEEDED Status: Active Protocol: Document 04/08/24 16:38 TS (Rec: 04/08/24 16:50 TS [id number]) PT-Bed Mobility Assessment Rolling Type of Rolling Log Rolling Level of Assist Minimal Assistance Supine to Sit Supine to Sit Minimal Assistance Sit to Supine Sit to Supine Minimal Assistance Scooting Scooting to Edge of Bed Standby Assistance PT-Transfer Assessment Sit to and From Stand Sit to and from Stand Maximum Assistance,1 Person Assistance Equipment Transfer Assistive Device Gait Belt,Front Wheeled Walker Orthotic/Prosthetic Devices or Brace: No Comments Mobility Comments Pt recalls 3/3 spinal precautions. Spouse dons gait belt prior to mobility. STS with FWW MaxA for balance, pt has difficulty transitioning hands to FWW. He ambulates ~30 ' in the room CGA, pt reports legs feeling weak. Sit to supine into bed Balaji with cues for sequencing. supine to sit Balaji for uprighting trunk. He performs steps x1 with FWW MaxA from spouse, pt's knees buckle. Pt was left back in the chair, all needs met. Gait Assessment Gait Gait Assistance Required: Contact Guard Assist Distance (Feet) 30 Able to Maintain Weight Bearing Status Yes During Gait Assistive Devices Assistive Device Gait Belt,Front Wheeled Walker Orthotic/Prosthetic Devices or Brace: No Gait Deviations General Gait Pattern Decreased Stride Length, Decreased Feet Clearance,Step- to Gait,Wide Based Gait Factors Limiting Gait Function Factors Limiting Gait Function Decreased Activity Tolerance, Decreased Strength,Limited Range of Motion,Pain,Poor Balance,Poor Safety Awareness Stair Climbing Assessment Evaluation Level of Assist On Stairs Maximal Assistance,1 Person Assistance Devices Stair Climbing Assistive Devices Front Wheel Walker Technique/Endurance Stair Climbing Direction Ascend and Descend Stair Climbing Technique Step to Step Number of Steps Climbed 1 PT-Balance Assessment Sitting Balance and Reactions Static Sitting Balance Ability Good Dynamic Sitting Balance Ability Fair Standing Balance and Reactions Static Standing Balance Ability Fair Dynamic Standing Balance Ability Poor Device Used FWW M5 PT-IP Objective Assessments Start: 04/08/24 13:07 Freq: NEEDED Status: Active Protocol: Document 04/08/24 09:40 AB (Rec: 04/08/24 13:25 AB [id number]) Orientation Orientation/Cognition Level of Alertness Alert Orientation Name,Age,Birthday,Place, Situation Language Function Ability No Deficits Noted Safety Awareness Decreased Safety Awareness Memory Description No Deficits Noted Gross Range of Motion Lower Extremity ROM Assessment Within Functional Limits Strength Lower Extremity Strength Assessment Bilaterally Impaired Hip 3+/5 Knee 4-/5 Ankle 4/5 Coordination Assessment Gross Coordination Gross Coordination WNL Sensation Assessment Sensation Gross Sensation WNL Muscle Tone Muscle Tone WNL Yes M6 PT-IP Treatment Start: 04/08/24 13:07 Freq: NEEDED Status: Active Protocol: Document 04/08/24 16:38 TS (Rec: 04/08/24 16:50 TS [id number]) Physical Therapy Treatment Education Education Provided Precautions,Weight Bearing Status,Safety M7 PT-IP Assessment and Plan Start: 04/08/24 13:07 Freq: NEEDED Status: Active Protocol: Document 04/08/24 16:38 TS (Rec: 04/08/24 16:50 TS [id number]) PT Summary Assessment and Plan Potential Rehabilitation Potential Fair Summary Impairments Pain,ROM,Strength,Balance, Coordination,Sensation,Tone, Cognition,Bed Mobility, Transfers,Gait,Activity Tolerance Progress Towards Goals Slow Progress due to Pain Assessment Summary Pt made some progress with his mobility but is limited by pain. He performs STS with MaxA from spouse. He performs bed with cues for sequencing. He progressed his gait to ~30' CGA from spouse. He performs step x1 with FWW. During stairs pt's knee buckle and has difficulty placing FWW on the step. PT is recommending pt return home with 24/ assist. Goals Bed Mobility Goal Standby Assistance Transfer Goal Standby Assistance,Front Wheeled Walker Gait Goal Standby Assistance,Front Wheel Walker Gait Distance 100 Other Goals improve bed mobility, transfers, ambulation using FWW 200 ft mod I up/down 1 step using FWW mod I Days to Meet Goals 5 Frequency of Treatment Frequency Of Treatment Twice a Day Treatment Plan Physical Therapy Treatment Plan Bed Mobility Training,Transfer Training,Gait Training, Therapeutic Exercise,Balance Retraining,Post Op Education, Discharge Planning,Hot or Cold Pack,Neuromuscular Re-ed, Coordination Retraining,Manual Therapy Precautions Lumbar Precautions Log Roll,No Twisting,Limit Bending,Lifting Restriction of 10 lbs,Gait Belt above Incisional Area Recommendations To Nursing Amount of Assist Needed 1 Person Assist Discharge Recommendations PT Discharge Recommendations Home with 24/ Assist Available,Home Health Transportation Needs at Discharge Private Vehicle,Wheelchair/ Cabulance
[2024-04-08 20:45] VITALS: TEMP 38.1
[2024-04-08] MEDS: SENNOSIDES 8.6 MG TABLET 17.2 MG PO (20:46)
[2024-04-08 21:38] VITALS: TEMP 37.3
[2024-04-08 21:49] VITALS: BP 100/64; PULSE 80; RESP 18; TEMP 38.1; O2SAT 97
[2024-04-09] MEDS: OXYCODONE IR 10 MG TABLET PO ×4 (00:30→12:19)
[2024-04-09] MEDS: CYCLOBENZAPRINE 10 MG TABLET PO (05:55)
--- NOTE | 2024-04-09 07:09 | P.DS_ITS ---
History of Present Illness History of Present Illness Date Patient Seen: 04/09/24 Time Patient Seen: 07:09 Chief complaint: Back pain Narrative: Operative Date/Time/Diagnoses Date of procedure: 04/07/24 Time of procedure: 12:00 Pre-op diagnosis: 1. L5 bilateral pars defect 1. L5-S1 anterolisthesis Post-op diagnosis: same Procedure & Clinicians Procedure: 1. L5-S1 Postero-lateral and posterior interbody fusion 2. L5-S1 interbody cage placement. 3. L5-S1 decompressive laminectomy with bilateral facetecomies 4. L5-S1 Posterior non-segmental instrumentation 5. [place] of bone marrow from iliac crest 6. Utilization of microsurgical technique and operating microscope Same procedure as scheduled: Yes Indications: Patient has been having chronic back pain and worsening lumbar radiculopathy. Patient failed multiple conservative management with worsening pain weakness and numbness in her lower extremity. Patient has been having difficulty performing activity of daily living. After discussing risks benefits of treatment options, patient elected proceed with surgery. Surgeon: Carlitos Zuñiga Corporate Security Officer: Radha Park Click Yes if Unassisted: No Anesthesia Type: General Operative Notes Closure Type: primary Specimen(s): none sent Prosthetic devices, grafts, tissues, transplants, or devices: Globus revolve screws, Rise cage Estimated Blood Loss (mL): 50 Blood products transfused: none Discharge Providers Provider Date of admission: 04/07/24 09:54 Discharge Date: 04/09/24 Primary care physician: Adela GORE Provider Consults: 04/07/24 16:24 Consult to Occupational Therapy Evaluate & Treat Comment: Physician Instructions: Evaluate and treat Consult to Physical Therapy Evaluate & Treat Comment: Physician Instructions: Evaluate and Treat Discharge provider: Radha Park PA-C Summary Hospital Course Discharge Diagnosis: L5 bilateral pars defect, L5-S1 anterolisthesis; s/p L5-S1 fusion Hospital Course: Mr De La Rosa's hospital course was unremarkable. On the morning of POD# 2, he was feeling well and wanted to discharge following PT if things went well. He had a fever to 100.6 overnight; use of incentive spirometry was encouraged. He said he felt 'heavy.' He was eating and voiding without difficulty and his pain was well-controlled with oral medication. Exam Vital Signs (past 8 hours): Oxygen Delivery Method Room Air Oxygen Flow Rate 0 Narrative Exam Narrative: 5/5 strength in hip flexors, quadriceps, hamstrings, PF, DF, EHL bilaterally. Sensation to light touch intact throughout BLE, calves soft and compressible. Low back dressings placed intraoperatively are CDI. [facility] Surgical History Hx of [place] Social History household members: spouse Smoking Status: Never smoker alcohol intake: current Discharge Assessment & Plan Assessment and Plan Assessment: L5 bilateral pars defect, L5-S1 anterolisthesis; s/p L5-S1 fusion Plan of Treatment: Multimodal pain management Limit bending, twisting, lifting Discharge home today after physical therapy if safe for home environment Discharge Plan Discharge Plan Patient Disposition: Home Discharge orders & Medications Prescriptions: New polyethylene glycol 3350 17 gram Powder In Packet 17 gm PO DAILY PRN (Reason: Constipation) Qty: 10 0RF oxycodone 5 mg Tablet 5 mg PO Q3H PRN (Reason: Pain, Moderate (4-6)) Qty: 30 0RF Continued acetaminophen [Tylenol Extra Strength] 500 mg Tablet 1,000 mg PO Q8H Discontinued naproxen [Naprosyn] 500 mg Tablet 500 mg PO BID Follow up/Referrals: Carlitos Zuñiga MD [Physician] - 04/22/24 9:50 am ([facility] office in [place]) ProviderAdela [Primary Care Provider] - Diet/Activity/Treatments Diet: Diet as Tolerated Activity: No deep bending or twisting at the waist. No lifting more than 10 pounds. Skin/Wound/Dressing Care Report to your healthcare provider any signs of infection, such as:: chills, fever, night sweats, unusual drainage and unusual redness Dressing: May shower. Keep dressing as dry as possible. If dressing becomes wet or dirty, may remove and replace with clean, dry gauze. No bathing or otherwise soaking incisions. Do not apply any creams, lotions, or ointments to incisions. Visit Report/Discharge Packet Instructions: DI for Constipation, How to Prevent Falls, DI for Prescription Opioid Use, DI for Transforaminal Lumbar Interbody Fusion Stand Alone Forms: Patient Portal/API, Stroke Signs & Symptoms, Surgery Discharge Discharge Data Primary Care Provider: Provider,[place] [facility]TE Deep Vein Thrombosis/Pulmonary Embolism Present on Admission: No
[2024-04-09 08:00] VITALS: BP 117/66; PULSE 88; RESP 15; TEMP 37.8; O2SAT 97
--- NOTE | 2024-04-09 09:00 | PT.IPTN ---
Current Diagnoses Spondylolisthesis, lumbar region (04/07/24) Spinal stenosis, lumbar region without neurogenic claudication (04/07/24) Surgery Performed Operation Date: 04/07/24 11:45 Actual Procedures p L5-S1 TLIF - Carlitos Zuñiga MD Physical Therapy Treatment Note M2 PT-IP Current Condition Start: 04/08/24 13:07 Freq: NEEDED Status: Active Protocol: Document 04/08/24 09:40 AB (Rec: 04/08/24 13:25 AB [id number]) Physical Therapy Current Condition Current Condition Evaluation Date 04/08/24 Treatment Diagnosis s/p L5-S1 TLIF ; difficulty in walking Onset Date 04/07/24 M3 PT-IP Subjective Start: 04/08/24 13:07 Freq: NEEDED Status: Active Protocol: Document 04/09/24 09:16 TS (Rec: 04/09/24 09:23 TS [id number]) Subjective Physical Therapy Visit Type Type Treatment Note Visit Start Time 09:00 Visit Stop Time 09:15 Number of OFFICE PROFESSIONAL Visits 2 Physical Therapy Visit Comments Patient Comments Pt found resting in the chair, reports feeling better this morning, he is agreeable to PT . Therapy Pain Assessment Pain When Pain Assessed During Mobility Pain Present Pain Present Pain Reported M4 PT-IP Mobility and Gait Start: 04/08/24 13:07 Freq: NEEDED Status: Active Protocol: Document 04/09/24 09:16 TS (Rec: 04/09/24 09:23 TS [id number]) PT-Transfer Assessment Sit to and From Stand Sit to and from Stand Minimal Assistance,1 Person Assistance Equipment Transfer Assistive Device Gait Belt,Front Wheeled Walker Orthotic/Prosthetic Devices or Brace: No Comments Mobility Comments Recalls 3/3 spinal precautions . STS with FWW Balaji, pt has some difficulty transitioning hands to FWW from chair. He ambulates ~25' in the room SBA . He performs steps x1 with FWW CGA. Pt ambulates back to the chair, all needs met. Gait Assessment Gait Gait Assistance Required: Standby Assistance Distance (Feet) 25 Able to Maintain Weight Bearing Status Yes During Gait Assistive Devices Assistive Device Gait Belt,Front Wheeled Walker Orthotic/Prosthetic Devices or Brace: No Gait Deviations General Gait Pattern Decreased Stride Length, Decreased Feet Clearance,Step- to Gait,Wide Based Gait Factors Limiting Gait Function Factors Limiting Gait Function Decreased Activity Tolerance, Decreased Strength,Limited Range of Motion,Pain,Poor Balance,Poor Safety Awareness Stair Climbing Assessment Evaluation Level of Assist On Stairs Contact Guard Assistance,1 Person Assistance Devices Stair Climbing Assistive Devices Front Wheel Walker Technique/Endurance Stair Climbing Direction Ascend and Descend Stair Climbing Technique Step to Step Number of Steps Climbed 1 PT-Balance Assessment Sitting Balance and Reactions Static Sitting Balance Ability Good Dynamic Sitting Balance Ability Fair Standing Balance and Reactions Static Standing Balance Ability Fair Dynamic Standing Balance Ability Fair Device Used FWW M5 PT-IP Objective Assessments Start: 04/08/24 13:07 Freq: NEEDED Status: Active Protocol: Document 04/08/24 09:40 AB (Rec: 04/08/24 13:25 AB [id number]) Orientation Orientation/Cognition Level of Alertness Alert Orientation Name,Age,Birthday,Place, Situation Language Function Ability No Deficits Noted Safety Awareness Decreased Safety Awareness Memory Description No Deficits Noted Gross Range of Motion Lower Extremity ROM Assessment Within Functional Limits Strength Lower Extremity Strength Assessment Bilaterally Impaired Hip 3+/5 Knee 4-/5 Ankle 4/5 Coordination Assessment Gross Coordination Gross Coordination WNL Sensation Assessment Sensation Gross Sensation WNL Muscle Tone Muscle Tone WNL Yes M6 PT-IP Treatment Start: 04/08/24 13:07 Freq: NEEDED Status: Active Protocol: Document 04/09/24 09:16 TS (Rec: 04/09/24 09:23 TS [id number]) Physical Therapy Treatment Education Education Provided Precautions,Weight Bearing Status,Safety M7 PT-IP Assessment and Plan Start: 04/08/24 13:07 Freq: NEEDED Status: Active Protocol: Document 04/09/24 09:16 TS (Rec: 04/09/24 09:23 TS [id number]) PT Summary Assessment and Plan Potential Rehabilitation Potential Fair Summary Impairments Pain,ROM,Strength,Balance, Coordination,Sensation,Tone, Cognition,Bed Mobility, Transfers,Gait,Activity Tolerance Progress Towards Goals Progressing Toward Goals Assessment Summary Pt demosntrates improved stability with gait and stair x1 this session. He had no buckling with performs step x1 with FWW. Pt also demonstrates good awareness of his spinal precautions. PT is recommending home with assist . Goals Bed Mobility Goal Standby Assistance Transfer Goal Standby Assistance,Front Wheeled Walker Gait Goal Standby Assistance,Front Wheel Walker Gait Distance 100 Other Goals improve bed mobility, transfers, ambulation using FWW 200 ft mod I up/down 1 step using FWW mod I Days to Meet Goals 5 Frequency of Treatment Frequency Of Treatment Twice a Day Treatment Plan Physical Therapy Treatment Plan Bed Mobility Training,Transfer Training,Gait Training, Therapeutic Exercise,Balance Retraining,Post Op Education, Discharge Planning,Hot or Cold Pack,Neuromuscular Re-ed, Coordination Retraining,Manual Therapy Precautions Lumbar Precautions Log Roll,No Twisting,Limit Bending,Lifting Restriction of 10 lbs,Gait Belt above Incisional Area Recommendations To Nursing Amount of Assist Needed 1 Person Assist Discharge Recommendations PT Discharge Recommendations Home with Assistance,Home Health Transportation Needs at Discharge Private Vehicle
[2024-04-09 09:16] VITALS: TEMP 38.1
[2024-04-09] MEDS: ACETAMINOPHEN 325 MG TABLET 650 MG PO (09:16)
[2024-04-09] MEDS: DOCUSATE 100 MG CAPSULE PO (09:16)
--- NOTE | 2024-04-09 10:52 | CM.DPC ---
DCP Cont. Reviewed EMR and team rounds for status updates. Pt has been medically cleared for home d/c, his is here and is transporting pt back home. No further DCP needs identified at this time.
--- NOTE | 2024-04-09 12:49 | PC.NURSE ---
Discharge: Pt feels ready to d/c to home. Seen by PA and given discharge instructions. Seen by PT/OT and has their final instructions. Eating w/out problems. Vds w/out diff. Po pain med has been effective. Pt is having a sl temp. 100.6, got tylenol, temp is down to 100.2. Pt would also like to have flexaril at home. PA beh called. She will send in an rx for same, knows of temp, and pt aware. His dressing was changed last evening and it is c/d/i. He was given an extra dressing until he can get more. Discharge packet reviewed and rx esent, questions answered. Pt d/c to home via auto with spouse.
== END 2024-04-09 12:30 | disposition home or self-care (01) | DRG 402 ==
PROVIDERS: Admitting Provider Orthopaedic Surgery Orthopaedic Surgery of the Spine; Referring Provider Orthopaedic Surgery Orthopaedic Surgery of the Spine; Visit Provider Orthopaedic Surgery Orthopaedic Surgery of the Spine
PROC: 0SG30AJ Fusion of Lumbosacral Joint with Interbody Fusion Device, Posterior Approach, Anterior Column, Open Approach (ICD-10-PCS; principal; 2024-04-07 11:45)
DX: M43.17 Spondylolisthesis, lumbosacral region (principal); M43.16 Spondylolisthesis, lumbar region; M48.061 Spinal stenosis, lumbar region without neurogenic claudication; R50.9 Fever, unspecified
CPT/HCPCS: 72100; 76000; 97116; 97162; 97165; 97530; 97535; C1713; C1831; C9290; J0171; J0330; J0690; J1100; J1171; J2250; J2405; J2704; J3010; J3410